=== PATIENT | male | born 1990 | race Caucasian/White ===

== ENCOUNTER 2020-09-21 15:57 | Emergency (ER) | payer BC, SELFPAY ==
--- NOTE | 2020-09-21 20:56 | EDPHYS ---
Physician Documentation [facility] Name: Ernst Higgins Age: 29 yrs Sex: Male : 1990 Arrival Date: 09/21/2020 Time: 16:04 Bed 18 Private MD: MARTITA Physician Bhaskar Ashraf HPI: 09/21 20:19 This 29 yrs old Male presents to ER via Ambulatory with complaints of Cough, jmm COVID+. 20:19 The patient or guardian reports cough. Onset: The symptoms/episode began/occurred jmm gradually, 16 day(s) ago. Modifying factors: The symptoms are alleviated by nothing, the symptoms are aggravated by nothing. Associated signs and symptoms: Pertinent positives: fever, cough. The patient has not experienced similar symptoms in the past. Patient diagnosed with covid 19. 16 days since symptoms onset. Historical: - Allergies: 16:47 No Known Allergies; ss - Home Meds: 16:47 None [Active]; ss - PMHx: 16:47 None; ss - PSHx: 16:47 None; ss - Immunization history:: Adult Immunizations up to date. - Social history:: Smoking status: Patient denies any tobacco usage or history of. ROS: 20:19 Constitutional: Positive for body aches, chills, fever. jmm 20:19 Respiratory: Positive for cough. 20:19 All other systems are negative. Exam: 20:19 Constitutional: This is a well developed, well nourished patient who is awake, alert, jmm and in no acute distress. Head/Face: atraumatic. Eyes: EOMI, no conjunctival erythema appreciated ENT: Moist Mucus Membranes Neck: Trachea midline, Supple Chest/axilla: Normal chest wall appearance and motion. Cardiovascular: Regular rate and rhythm. No edema appreciated Respiratory: Normal respirations, no respiratory distress appreciated Abdomen/GI: Non distended, soft Back: Normal ROM Skin: General appearance color normal MS/ Extremity: Moves all extremities, no obvious deformities appreciated, no edema noted to the lower extremities Neuro: Awake and alert, normal gait Psych: Behavior is normal, Mood is normal, Patient is cooperative and pleasant Vital Signs: 16:47 BP 144 / 89; Pulse 112; Resp 19; Temp 99.6(TE); Pulse Ox 97% on R/A; Weight 131.54 kg; ss Height 5 ft. 11 in. (180.34 cm); Pain 0/10; 20:31 BP 129 / 78; Pulse 114; Resp 18; Temp 99.8(O); ll1 16:47 Body Mass Index 40.45 (131.54 kg, 180.34 cm) ss MDM: 18:52 Patient medically screened. [facility] 20:54 Data reviewed: vital signs, nurses notes. Counseling: I had a detailed discussion with reece the patient and/or guardian regarding: the historical points, exam findings, and any diagnostic results supporting the discharge/admit diagnosis, radiology results, the need for outpatient follow up, to return to the emergency department if symptoms worsen or persist or if there are any questions or concerns that arise at home. ED course: Patient is alert and non toxic in appearance in the ED. No signs of resp distress. patient advised to follow up with pcp and otherwise given strict return pecautions. Patient understood and agrees with the plan of care. . 09/21 18:51 Order name: Chest Single View XRAY; Complete Time: 21:08 [facility] Administered Medications: 21:20 Drug: Decadron 10 mg Route: IM; Site: right vastus lateralis; ll1 21:32 Follow up: Response: No adverse reaction; RASS: Alert and Calm (0) ll1 Disposition: 09/22 11:09 Co-signature as Attending Physician, Bhaskar Ashraf MD I agree with the assessment and [facility] plan of care. Disposition: 09/21/20 20:55 Discharged to Home. Impression: Coronavirus infection, unspecified. - Condition is Stable. - Discharge Instructions: COVID-19. - Prescriptions for ivermectin 3 mg Oral tablet - take 6 tablet by ORAL route as directed Take one dose day 1 and the second dose day 3; 12 tablet. Albuterol Sulfate 90 mcg/actuation - inhale 1-2 puff by INHALATION route every 4-6 hours; 1 Inhaler. Levaquin 750 mg Oral Tablet - take 1 tablet by ORAL route once daily for 10 days; 10 tablet. promethazine- DM - take 5 milliliter by ORAL route every 4-6 hours; 120 milliliter. - Medication Reconciliation Form, Thank You Letter, Antibiotic Education, Prescription Opioid Use form. - Follow up: Private Physician; When: 2 - 3 days; Reason: Recheck today's complaints, Continuance of care, Re-evaluation by your physician. Signatures: Dispatcher [employer] EDBhaskar Feldman MD MD cha Mickail, Joel, PA PA jmm Smirch, Shelby, LARA RN Angela Lepe RN RN ll1 Corrections: (The following items were deleted from the chart) 09/21 21:32 20:55 09/21/2020 20:55 Discharged to Home. Impression: Coronavirus infection, ll1 unspecified. Condition is Stable. Forms are Medication Reconciliation Form, Thank You Letter, Antibiotic Education, Prescription Opioid Use. Follow up: Private Physician; When: 2 - 3 days; Reason: Recheck today's complaints, Continuance of care, Re-evaluation by your physician. reece
--- NOTE | 2020-09-21 20:56 | ER ---
Nurse's Notes [facility] Name: Ernst Higgins Age: 29 yrs Sex: Male : 1990 Arrival Date: 09/21/2020 Time: 16:04 Bed 18 Private MD: Diagnosis: Coronavirus infection, unspecified Presentation: 09/21 16:46 Chief complaint: Patient states: cough x 3 weeks. COVID + 2 weeks ago. Coronavirus ss screen: Client denies travel out of the [place] in the last 14 days. Ebola Screen: Patient denies exposure to infectious person. Patient denies travel to an Ebola-affected area in the 21 days before illness onset. Initial Sepsis Screen: Does the patient meet any 2 criteria? No. Patient's initial sepsis screen is negative. Does the patient have a suspected source of infection? No. Patient's initial sepsis screen is negative. Risk Assessment: Do you want to hurt yourself or someone else? Patient reports no desire to harm self or others. Onset of symptoms was September 05, 2020. 16:46 Method Of Arrival: Ambulatory ss 16:46 Acuity: LINA 4 ss Historical: - Allergies: 16:47 No Known Allergies; ss - Home Meds: 16:47 None [Active]; ss - PMHx: 16:47 None; ss - PSHx: 16:47 None; ss - Immunization history:: Adult Immunizations up to date. - Social history:: Smoking status: Patient denies any tobacco usage or history of. Screenin:50 Abuse screen: Denies threats or abuse. Nutritional screening: No deficits noted. ll1 Tuberculosis screening: No symptoms or risk factors identified. 20:33 Fall Risk Total Bonilla Fall Scale indicates No Risk (0-24 pts). ll1 Assessment: 18:50 General: Appears in no apparent distress. Behavior is calm, cooperative, appropriate ll1 for age. Pain: Denies pain. Respiratory: Reports cough that is Airway is patent Trachea midline Respiratory effort is even, unlabored, Respiratory pattern is regular, symmetrical, Breath sounds are clear bilaterally. Onset: The symptoms/episode began/occurred 3 weeks ago, the patient has mild shortness of breath. GI: Abdomen is flat, Bowel sounds present X 4 quads. Abd is soft and non tender X 4 quads. Reports diarrhea. Vital Signs: 16:47 BP 144 / 89; Pulse 112; Resp 19; Temp 99.6(TE); Pulse Ox 97% on R/A; Weight 131.54 kg; Height 5 ft. 11 in. (180.34 cm); Pain 0/10; 20:31 BP 129 / 78; Pulse 114; Resp 18; Temp 99.8(O); ll1 16:47 Body Mass Index 40.45 (131.54 kg, 180.34 cm) ED Course: 16:04 Patient arrived in ED. am4 16:46 Triage completed. 16:47 Arm band placed on right wrist. 18:37 Reji Dickens PA is PHCP. [facility] 18:37 Bhaskar Ashraf MD is Attending Physician. [facility] 18:48 Angela Khoury, RN is Primary Nurse. ll1 18:50 Patient has correct armband on for positive identification. Bed in low position. Call ll1 light in reach. Side rails up X 1. Pulse ox on. NIBP on. 19:33 Chest Single View XRAY In Process Unspecified. EDMS 21:31 No provider procedures requiring assistance completed. Patient did not have IV access ll1 during this emergency room visit. Administered Medications: 21:20 Drug: Decadron 10 mg Route: IM; Site: right vastus lateralis; 1 21:32 Follow up: Response: No adverse reaction; RASS: Alert and Calm (0) 1 Outcome: 20:55 Discharge ordered by MD. [facility] 21:31 Discharged to home ambulatory. ll1 21:31 Condition: stable 21:31 Discharge instructions given to patient, Instructed on discharge instructions, follow up and referral plans. no drinking with medication, no driving heavy equipment, medication usage, Demonstrated understanding of instructions, follow-up care, medications, Prescriptions given X 4. 21:32 Patient left the ED. ll1 Signatures: Dispatcher [employer] EDMS Reji Dickens PA PA jmm Smirch, Shelby, RN RN Angela Khoury, LARA RN ll1 Shima Hsu am4
--- NOTE | 2020-09-21 20:59 | RAD REPORT ---
EXAM DESCRIPTION: Jimmy Single View09/21/2020 7:33 pm CLINICAL HISTORY: Cough COMPARISON: 1999 FINDINGS: [id number] bilateral pulmonary opacities Heart is normal size IMPRESSION: [id number] bilateral pulmonary opacities probably pneumonia
[2020-09-21] MEDS ORDERED: dexAMETHasone 10 MG/ML VIAL ONE (21:33)
[2020-09-21 21:39] VITALS: O2SAT 97
[2020-09-21 21:40] VITALS: BP 129/78; TEMP 99.8
== END 2020-09-21 21:32 | disposition home or self-care (01) ==
LOC: ER 15:57
DX: U07.1 COVID-19 (principal)
CPT/HCPCS: 71045; 96372; 99284; J1100